=== PATIENT | female | born 1985 ===

== ENCOUNTER 2018-07-28 15:30 | Outpatient (REF) | payer MEDICAID, SELFPAY ==
[2018-07-28 22:06] LABS: Abs Immature Grans 0.02 k/cumm (0.0-0.09); Absolute Basophil Count 0.02 k/cumm (0.0-0.2); Absolute Eosinophil Count 0.03 k/cumm (0.0-0.7); Absolute Lymphocyte Count 1.78 k/cumm (1.2-3.4); Absolute Monocyte Count 0.65 k/cumm (0.11-0.7); Basophils % 0.3; Eosinophils % 0.5; HGB 12.3 g/dL (12.0-15.5); Immature Grans % 0.3; Lymphocytes % 28.7; Mean Corp. HGB Concentration 33.2 g/dL (32.0-36.0); Mean Corpuscular Hemoglobin 31.1 pg (27.0-33.0); Mean Corpuscular Volume 93.4 fL (80-95); Mean Platelet Volume 12.6 fL (8.0-11.0); Monocytes % 10.5; Neutrophils % 59.7; Platelet Count 227 x1000/uL (130-400); RBC 3.96 m/cumm (4.00-5.20); RBC Distribution Width 13.7 % (11.7-14.6)
[2018-07-28 22:32] LABS: ALT 24 U/L (12-78); AST 22 U/L (15-37); Albumin 3.7 g/dL (3.4-5.0); Alkaline Phosphatase 81 U/L (46-116); Anion Gap 9.3 mmol/L (3-11); BUN 13 mg/dL (7-18); Bilirubin, Total 0.4 mg/dL (0.2-1.0); CO2 29.7 mmol/L (21.0-32.0); CREATININE 0.78 mg/dL (0.55-1.02); Calcium 9.2 mg/dL (8.5-10.1); Chloride 104 mmol/L (98-107); Glucose 78 mg/dL (70-100); Potassium 4.3 mmol/L (3.5-5.1); Sodium 143 mmol/L (136-145); TSH (W/Ref FT4) 1.95 uIU/mL (0.358-3.74); Total Protein 7.5 g/dL (6.4-8.2)
[2018-07-28 22:41] LABS: ESR 19 MM/HR (0-20)
[2018-08-01 10:39] LABS: Thyroglobulin Antibody <15 U/mL (<61); Thyroperoxidase Antibody <28 U/mL (<61)
== END 2018-07-28 15:50 ==
LOC: NCHCN 15:30
PROVIDERS: Visit Provider Family Medicine
DX: E01.0 Iodine-deficiency related diffuse (endemic) goiter (principal); R00.0 Tachycardia, unspecified; L65.9 Nonscarring hair loss, unspecified; R53.83 Other fatigue; F31.30 Bipolar disorder, current episode depressed, mild or moderate severity, unspecified
CPT/HCPCS: 80053; 85652; 86376; 84443; 85025

== ENCOUNTER 2019-03-14 15:52 | Outpatient (REF) | payer MEDICAID, SELFPAY ==
[2019-03-14 22:01] LABS: Absolute Basophil Count 0.04 k/cumm (0.0-0.2); Absolute Eosinophil Count 0.12 k/cumm (0.0-0.7); Absolute Lymphocyte Count 3.43 k/cumm (1.2-3.4); Absolute Monocyte Count 0.88 k/cumm (0.11-0.7); Absolute Neutrophil Count 2.18 k/cumm (1.2-6.7); Basophils % 0.6; Eosinophils % 1.8; HCT 37.6 % (36.0-46.0); HGB 12.5 g/dL (12.0-15.5); Lymphocytes % 51.6; Mean Corp. HGB Concentration 33.2 g/dL (32.0-36.0); Mean Corpuscular Hemoglobin 31.8 pg (27.0-33.0); Mean Corpuscular Volume 95.7 fL (80-95); Mean Platelet Volume 13.1 fL (8.0-11.0); Monocytes % 13.2; Neutrophils % 32.8; Platelet Count 247 x1000/uL (130-400); RBC 3.93 m/cumm (4.00-5.20); RBC Distribution Width 14.8 % (11.7-14.6); White Blood Cell Count 6.65 k/cumm (4.4-10.8)
[2019-03-14 22:36] LABS: ALT 33 U/L (14-59); AST 34 U/L (15-37); Albumin 4.4 g/dL (3.4-5.0); Alkaline Phosphatase 76 U/L (46-116); Anion Gap 9.6 mmol/L (3-11); BUN 22 mg/dL (7-18); Bilirubin, Total 0.5 mg/dL (0.2-1.0); CO2 29.4 mmol/L (21.0-32.0); CREATININE 0.82 mg/dL (0.55-1.02); Calcium 9.3 mg/dL (8.5-10.1); Calculated LDL 62 mg/dL; Chloride 103 mmol/L (98-107); Cholesterol 132 mg/dL (50-200); Glucose 84 mg/dL (70-100); HDL Cholesterol 59 mg/dL (40-60); Potassium 4.2 mmol/L (3.5-5.1); Sodium 142 mmol/L (136-145); Total Protein 8.1 g/dL (6.4-8.2); Triglyceride 56 mg/dL (30-150)
[2019-03-15 16:09] LABS: Vitamin B12 975 pg/mL (193-986)
[2019-03-16 11:55] LABS: HBs Antibody, Quant 232.3 mIU/mL; Hepatitis B Surface Ab Positive
[2019-03-16 12:06] LABS: HIV-1/2 Ag & Ab Screen Negative (NEGAT); Hep A Total Ab w Rflx IgM Negative (NEGAT); Hepatitis C Ab w Rflx HCV PCR Negative (NEGAT)
[2019-03-16 13:17] LABS: Folate 4.9 ng/ml
== END 2019-03-14 16:12 ==
LOC: NCHCN 15:52
PROVIDERS: Nurse Practitioner Family; Visit Provider Family Medicine
DX: M79.7 Fibromyalgia (principal); F31.30 Bipolar disorder, current episode depressed, mild or moderate severity, unspecified; F11.10 Opioid abuse, uncomplicated; E01.0 Iodine-deficiency related diffuse (endemic) goiter; Z11.4 Encounter for screening for human immunodeficiency virus [HIV]; Z11.59 Encounter for screening for other viral diseases; Z01.84 Encounter for antibody response examination
CPT/HCPCS: 80053; 80061; 86706; 86709; 86803; 87389; 87491; 87591; 82607; 82746; 85025